=== PATIENT | female | born 2000 | race American Indian/Alaskan Native ===

== ENCOUNTER 2021-04-22 21:11 | Inpatient (IN) | payer MEDICAID ==
[2021-04-22] MEDS ORDERED: LACTATED RINGERS 500 ML IV ONE (22:21)
--- NOTE | 2021-04-23 02:01 | Ultrasound Report ---
US OB limited INDICATION / CLINICAL INFORMATION: FHR. COMPARISON: None available. FINDINGS: Single intrauterine is noted in cephalic presentation. No cardiac activity was detect ed. There is a grade 1 posterior/fundal placenta which appears heterogeneous. IMPRESSION: 1. Intrauterine , no cardiac activity was detected. 2. Grade 1 posterior/fundal placenta appears diffusely abnormal/heterogeneous. I cannot exclude abrup tion. Signer Name: Ashkan Navarrete MD Signed: 04/23/2021 1:57 AM Workstation Name: [id number]
[2021-04-23] MEDS ORDERED: CARBOPROST TROMETHAMINE 250 MCG/1 ML INJ IM PRN (02:30)
[2021-04-23] MEDS ORDERED: MINERAL OIL 30 ML ORAL LIQD PO PRN (02:30)
[2021-04-23] MEDS ORDERED: LIDOCAINE (2%) 20 MG/1 ML VIAL 20 ML MDV INFILTRATI ONE (02:30)
[2021-04-23] MEDS ORDERED: METHYLERGONOVINE MALEATE 0.2 MG/ML VIAL IM PRN (02:30)
[2021-04-23] MEDS ORDERED: OXYTOCIN 10 UNIT/1 ML INJ IM PRN (02:30)
[2021-04-23] MEDS ORDERED: fentaNYL 100 MCG/2 ML INJ IV PRN (02:30)
[2021-04-23] MEDS ORDERED: NalbUPHINE 10 MG/1 ML INJ IV PRN (02:30)
[2021-04-23] MEDS ORDERED: LOPERAMIDE 2 MG CAP PO PRN (02:30)
[2021-04-23] MEDS ORDERED: miSOPROStol 200 MCG TAB PR PRN (02:30)
[2021-04-23] MEDS ORDERED: ePHEDrine SULFATE 50 MG/1 ML INJ IV PRN ×2 (02:30→20:01)
[2021-04-23] MEDS ORDERED: ACETAMINOPHEN 325 MG TAB PO PRN (02:30)
--- NOTE | 2021-04-23 02:42 | History and Physical Report ---
History of Present Illness Date of examination: 04/23/21 Date of admission: 04/23/2021 Chief complaint: No movement History of present illness: Was notified at 02:07 by nurse of no cardiac activity on ultrasound. Came to patient's room to see and evaluate patient. Discussed ultrasound report with patient. 20 year old presents to L&D with complaint of no movement; states last movement was possibly at 3:00 PM. Patient reports she felt co ntractions and abdominal pain at 3:00 PM today. Patient states abdominal pain is much better. Patient denies vaginal bleeding or leaking of fluid. Patient reports episode of blurred vision at 3:00 PM but no further visual disturbance and no swelling, headaches, or dizziness. Patient states she has made 2 visits to [facility] but no records are available. records have been requested. Patient reports that her due date is 06/23/21. labs ordered upon admission; preeclamptic labs and UDS ordered. Past History Past Medical History: no pertinent history Past Surgical History: no surgical history PAIN MEDICINE PHYSICIAN History: denies: chlamydia, gonorrhea, hepatitis B, hepatitis C, herpes, HIV, syphilis, trichomonas Family/Genetic History: diabetes Social history: lives with family, full code. denies: smoking, alcohol abuse, prescription drug abuse, IV drug use - Obstetrical History Expected Date of Delivery: 06/23/21 Actual Gestation: 31 Week(s) 2 Day(s) : 1 Para: 0 Hx # Term Pregnancies: 0 Number of Pregnancies: 0 Spontaneous Abortions: 0 Induced : 0 Number of Living Children: 0 Medications and Allergies Allergies Allergy/AdvReac Type Severity Reaction Status Date / Time No Known Allergies Allergy Verified 04/22/21 22:23 Active Meds: Active Medications Acetaminophen (Acetaminophen 325 Mg Tab) 650 mg PO Q4H PRN PRN Reason: Pain, Mild (1-3) Carboprost Tromethamine (Carboprost Tromethamine 250 Mcg/1 Ml Inj) 250 mcg IM ONCE PRN PRN Reason: Uterine Bleeding Ephedrine Sulfate (Ephedrine Sulfate 50 Mg/1 Ml Inj) 10 mg IV Q2M PRN PRN Reason: Hypotension Fentanyl (Fentanyl 100 Mcg/2 Ml Inj) 100 mcg IV Q2H PRN PRN Reason: Pain,Severe (7-10) LABOR PAIN Lactated Ringer's (Lactated Ringers) 1,000 mls @ 125 mls/hr IV DIRECT KATELYN Oxytocin/Sodium Chloride (Pitocin/Ns 30 Unit/500ml) 30 units in 500 mls @ 40 mls/hr IV TITR KATELYN; Protocol Labetalol HCl (Labetalol 20 Mg/4 Ml Inj) 10 mg IV ONCE ONE Stop: 04/23/21 02:38 Lidocaine (Lidocaine (2%) 20 Mg/1 Ml Vial 20 Ml Mdv) 20 ml INFILTRATI ONCE ONE Stop: 04/23/21 02:31 Loperamide HCl (Loperamide 2 Mg Cap) 2 mg PO ONCE PRN PRN Reason: give with Hemabate Methylergonovine Maleate (Methylergonovine Maleate 0.2 Mg/Ml Vial) 0.2 mg IM ONCE PRN PRN Reason: Uterine Bleeding Mineral Oil (Mineral Oil 30 Ml Oral Liqd) 30 ml PO QHS PRN PRN Reason: Constipation Misoprostol (Misoprostol 200 Mcg Tab) 800 mcg UT ONCE PRN PRN Reason: Uterine Bleeding Nalbuphine HCl (Nalbuphine 10 Mg/1 Ml Inj) 10 mg IV Q2H PRN PRN Reason: Pain, Moderate (4-6) Oxytocin (Oxytocin 10 Unit/1 Ml Inj) 10 unit IM ONCE PRN PRN Reason: Uterine Bleeding Review of Systems All systems: negative (no movement since 3:00 PM, contractions and abdominal pain since 3:00 PM) - Vital Signs Vital signs: Vital Signs Pulse BP 76 144/88 04/23/21 00:36 04/23/21 00:36 Temp Pulse Resp BP Pulse Ox 78 160/102 69 L 04/23/21 02:22 04/23/21 02:22 04/23/21 02:11 - Physical Exam Abdomen: Positive: other (firm, nontender) Genitourinary (Female): Positive: normal external genitalia, normal perenium Vagina: Positive: normal moisture, other (no bleeding or leaking of fluid seen) Uterus: Positive: enlarged, other (firm to palpation). Negative: tender Anus/Rectum: Positive: normal perianal skin Extremities: Negative: tenderness - Obstetrical FHR: other (unable to obtain heart tones; ultrasound shows no cardiac activity) Cervical Dilatation: 0 Cervical Effacement Percentage: 30 station: -3 Uterine Contraction Pattern: Irregular Uterine Contraction Intensity: Strong/Firm Results All other labs normal. Assessment and Plan A: at 31 weeks, 2 days gestation. No cardiac activity. Possible placental abruption. No records available. P: Consulted with Dr. Blake as soon as aware of patient's presence and no cardiac activity and possible placental abruption. Dr. Blake states she is on her way in to see patient. Discussed with patient ultrasound report and no cardiac activity. Management/POC to be determined by Dr. Blake.
[2021-04-23 02:52] LABS: Amphetamine Screen,Urine PRESUMPTIVE NEGATIVE; Benzodiazepines Screen,Urine PRESUMPTIVE NEGATIVE; Cannabinoid Screen,Urine PRESUMPTIVE NEGATIVE; Cocaine Screen,Urine PRESUMPTIVE NEGATIVE; Methadone Screen,Urine PRESUMPTIVE NEGATIVE; Opiate Screen,Urine PRESUMPTIVE NEGATIVE
[2021-04-23] MEDS ORDERED: DINOPROSTONE 10 MG VAG SUPP VG ONE (02:52)
--- NOTE | 2021-04-23 02:58 | Progress Note ---
Assessment and Plan - Patient Problems (1) demise Current Visit: Yes Status: Acute Plan to address problem: the patient is currently clinically and hemodynamically stable patient's cervical exam is currently closed will initiate cervidil for ripening recommend expediting amniotomy once dilation occurs patient currently comfortable and able to answer questions current prognosis discussed with patient to include the possibility of requiring a delivery if she becomes unstable and possible hysterectomy if hemorrhage ensues vaginal delivery would be the preferred route of delivery in lieu of placental abruption (2) Placental abruption Current Visit: Yes Status: Acute Plan to address problem: will obtain additional blood pressures suspect that patient is preeclamptic initiate magnesium sulfate therapy Subjective - Subjective Date of service: 04/23/21 Principal diagnosis: demise Interval history: 20y/o @ 31+2 weeks presents to triage with the complaint of abdominal pain and no movement since 6pm. Ultrasound was performed that confirmed an intrauterine demise in vertex presentation. The photovoltaic installation technician noted that the placenta appeared enlarged but could not definitively detect a retroplacental hematoma. On presentation the patient's abdomen was firm. She denies any vaginal bleeding or LOF. She denies any recent trauma or drug use. The patient's blood pressure was noted to be elevated. Her care is limited. Patient reports: no loss of fluid, no vaginal bleeding, no movement normal Objective - Vital Signs Vital Signs: Vital Signs - 12hr 04/23/21 04/23/21 04/23/21 00:36 00:38 00:43 Pulse Rate 76 71 86 Blood Pressure 144/88 O2 Sat by Pulse 99 100 Oximetry 04/23/21 04/23/21 04/23/21 00:48 00:53 00:58 Pulse Rate 77 75 78 Blood Pressure O2 Sat by Pulse 99 100 100 Oximetry 04/23/21 04/23/21 04/23/21 01:03 01:04 01:08 Pulse Rate 76 73 87 Blood Pressure O2 Sat by Pulse 100 87 100 Oximetry 04/23/21 04/23/21 04/23/21 01:13 01:18 01:23 Pulse Rate 81 100 H 84 Blood Pressure O2 Sat by Pulse 99 100 100 Oximetry 04/23/21 04/23/21 04/23/21 01:28 01:33 01:38 Pulse Rate 85 85 80 Blood Pressure O2 Sat by Pulse 100 100 100 Oximetry 04/23/21 04/23/21 04/23/21 01:43 01:48 01:53 Pulse Rate 83 83 82 Blood Pressure O2 Sat by Pulse 100 100 100 Oximetry 04/23/21 04/23/21 04/23/21 01:58 02:03 02:10 Pulse Rate 85 102 H 48 L Blood Pressure O2 Sat by Pulse 100 100 80 L Oximetry 04/23/21 04/23/21 02:11 02:22 Pulse Rate 47 L 78 Blood Pressure 160/102 O2 Sat by Pulse 69 L Oximetry
[2021-04-23] MEDS ORDERED: MAGNESIUM SULFATE 4 GM/100 ML BAG IV ONE (03:00)
[2021-04-23] MEDS ORDERED: OXYTOCIN DRIP 30 UNITS/500 ML BAG IV SCH ×2 (03:00→20:00)
--- NOTE | 2021-04-23 03:06 | Event Note ---
Date: 04/23/21 Dr. Blake states she saw patient and spoke with patient re: plan of care. Dr. Blake states she ordered Cervidil for patient.
[2021-04-23 03:16] LABS: Bacteria,Urine 3+ /HPF (Negative); Bilirubin,Urine NEG (Negative); Blood,Urine NEG (Negative); Color,Urine Yellow (Yellow); Hyaline Casts,Urine 9 /LPF; Mucus,Urine 1+ /HPF; Urobilinogen,Urine < 2.0 mg/dL (<2.0)
[2021-04-23 04:26] LABS: Hematocrit 28.6 % (30.3-42.9); Hemoglobin 10.1 gm/dl (10.1-14.3); Mean Corpuscular HGB Conc 35 % (30-34); Mean Corpuscular Volume 87 fl (79-97); Platelet Count 130 K/mm3 (140-440); Red Blood Count 3.29 M/mm3 (3.65-5.03); Red Cell Distribution Width 14.8 % (13.2-15.2)
[2021-04-23 04:39] LABS: INR 0.87 (0.87-1.13)
[2021-04-23 04:40] LABS: Fibrinogen 270 mg/dl (211-480)
[2021-04-23 04:44] LABS: Alanine Aminotransferase 11 units/L (7-56); Albumin 3.7 g/dL (3.9-5); BUN/Creatinine Ratio 12; Blood Urea Nitrogen 11 mg/dL (7-17); Calcium 9.2 mg/dL (8.4-10.2); Hemolysis Index 9; Uric Acid 4.8 mg/dL (3.5-7.6)
[2021-04-23 04:51] LABS: Hepatitis C Virus Antibody Non-Reactive (NonReactive)
[2021-04-23] MEDS: MAGNESIUM SULFATE 40GM/1000ML 40 GM/1,000 ML BAG IV SCH (05:00)
--- NOTE | 2021-04-23 07:41 | Progress Note ---
Subjective - Subjective Date of service: 04/23/21 Principal diagnosis: demise Interval history: IUFD WILL pull cervidil and start cytotec 50mcg Q4 x 6 doses Continue Magnesium Sulfate: BP's stable 2 units PRBC on hold: fibrinogen, coags and repeat cbc ordered Monitor closely for DIC Toney Simpson MD Patient reports: no loss of fluid, no vaginal bleeding, no movement normal Objective - Vital Signs Vital Signs: Vital Signs - 12hr 04/23/21 04/23/21 04/23/21 00:36 00:38 00:43 Pulse Rate 76 71 86 Blood Pressure 144/88 O2 Sat by Pulse 99 100 Oximetry O2 Sat by Pulse Oximetry [ Throughout] 04/23/21 04/23/21 04/23/21 00:48 00:53 00:58 Pulse Rate 77 75 78 Blood Pressure O2 Sat by Pulse 99 100 100 Oximetry O2 Sat by Pulse Oximetry [ Throughout] 04/23/21 04/23/21 04/23/21 01:03 01:04 01:08 Pulse Rate 76 73 87 Blood Pressure O2 Sat by Pulse 100 87 100 Oximetry O2 Sat by Pulse Oximetry [ Throughout] 04/23/21 04/23/21 04/23/21 01:13 01:18 01:23 Pulse Rate 81 100 H 84 Blood Pressure O2 Sat by Pulse 99 100 100 Oximetry O2 Sat by Pulse Oximetry [ Throughout] 04/23/21 04/23/21 04/23/21 01:28 01:33 01:38 Pulse Rate 85 85 80 Blood Pressure O2 Sat by Pulse 100 100 100 Oximetry O2 Sat by Pulse Oximetry [ Throughout] 04/23/21 04/23/21 04/23/21 01:43 01:48 01:53 Pulse Rate 83 83 82 Blood Pressure O2 Sat by Pulse 100 100 100 Oximetry O2 Sat by Pulse Oximetry [ Throughout] 04/23/21 04/23/21 04/23/21 01:58 02:03 02:10 Pulse Rate 85 102 H 48 L Blood Pressure O2 Sat by Pulse 100 100 80 L Oximetry O2 Sat by Pulse Oximetry [ Throughout] 04/23/21 04/23/21 04/23/21 02:11 02:22 02:35 Pulse Rate 47 L 78 Blood Pressure 160/102 O2 Sat by Pulse 69 L 85 Oximetry O2 Sat by Pulse Oximetry [ Throughout] 04/23/21 04/23/21 04/23/21 02:52 02:59 03:18 Pulse Rate 33 L Blood Pressure O2 Sat by Pulse 80 L 81 L 0 L Oximetry O2 Sat by Pulse Oximetry [ Throughout] 04/23/21 04/23/21 04/23/21 03:28 03:55 04:05 Pulse Rate 93 H 93 H Blood Pressure 144/101 137/90 O2 Sat by Pulse Oximetry O2 Sat by Pulse 97 Oximetry [ Throughout] 04/23/21 04/23/21 04/23/21 04:33 04:48 05:05 Pulse Rate 87 90 85 Blood Pressure 149/97 137/81 138/93 O2 Sat by Pulse Oximetry O2 Sat by Pulse Oximetry [ Throughout] 04/23/21 04/23/21 04/23/21 05:06 05:36 06:07 Pulse Rate 80 74 83 Blood Pressure 141/93 136/86 157/89 O2 Sat by Pulse Oximetry O2 Sat by Pulse Oximetry [ Throughout] 04/23/21 04/23/21 04/23/21 06:21 06:37 06:45 Pulse Rate 100 H 98 H 84 Blood Pressure 139/80 164/89 146/94 O2 Sat by Pulse Oximetry O2 Sat by Pulse Oximetry [ Throughout] 04/23/21 04/23/21 04/23/21 06:53 07:06 07:36 Pulse Rate 89 103 H 93 H Blood Pressure 144/86 148/93 118/68 O2 Sat by Pulse Oximetry O2 Sat by Pulse Oximetry [ Throughout] - Labs Labs: Abnormal Labs 04/22/21 04/23/21 04/23/21 22:50 03:40 03:40 WBC 14.7 H RBC 3.29 L Hct 28.6 L MCHC 35 H Plt Count 130 L D-Dimer Carbon Dioxide 20 L Alkaline Phosphatase 156 H Lactate Dehydrogenase 270 H Albumin 3.7 L Urine WBC (Auto) 8.0 H U Epithel Cells (Auto) 39.0 H 04/23/21 03:40 WBC RBC Hct MCHC Plt Count D-Dimer > 49508 H Carbon Dioxide Alkaline Phosphatase Lactate Dehydrogenase Albumin Urine WBC (Auto) U Epithel Cells (Auto) Laboratory Results - last 24 hr 04/22/21 04/22/21 04/23/21 22:50 22:50 03:40 WBC 14.7 H RBC 3.29 L Hgb 10.1 Hct 28.6 L MCV 87 MCH 31 MCHC 35 H RDW 14.8 Plt Count 130 L PT INR APTT Fibrinogen D-Dimer Sodium Potassium Chloride Carbon Dioxide Anion Gap BUN Creatinine Estimated GFR BUN/Creatinine Ratio Glucose Uric Acid Calcium Magnesium Total Bilirubin AST ALT Alkaline Phosphatase Lactate Dehydrogenase Total Protein Albumin Albumin/Globulin Ratio Urine Color Yellow Urine Turbidity Cloudy Urine pH 6.0 Ur Specific Avis 1.015 Urine Protein 30 mg/dl Urine Glucose (UA) Neg Urine Ketones Neg Urine Blood Neg Urine Nitrite Neg Urine Bilirubin Neg Urine Urobilinogen < 2.0 Ur Leukocyte Esterase Tr Urine WBC (Auto) 8.0 H Urine RBC (Auto) 2.0 U Epithel Cells (Auto) 39.0 H Urine Bacteria (Auto) 3+ Ur Transition Epith Cell 1 Hyaline Casts 9 Urine Mucus 1+ Urine Opiates Screen Presumptive negative Urine Methadone Screen Presumptive negative Ur Barbiturates Screen Presumptive negative Ur Phencyclidine Scrn Presumptive negative Ur Amphetamines Screen Presumptive negative U Benzodiazepines Scrn Presumptive negative Urine Cocaine Screen Presumptive negative U Marijuana (THC) Screen Presumptive negative Drugs of Abuse Note Disclamer Syphilis IgG/IgM Ab Hep Bs Antigen Hepatitis C Antibody HIV 1&2 Antibody Rapid HIV P24 Antigen Blood Type Antibody Screen 04/23/21 04/23/21 04/23/21 03:40 03:40 03:40 WBC RBC Hgb Hct MCV MCH MCHC RDW Plt Count PT INR APTT Fibrinogen D-Dimer Sodium 139 Potassium 4.1 Chloride 104.7 Carbon Dioxide 20 L Anion Gap 18 BUN 11 Creatinine 0.9 Estimated GFR > 60 BUN/Creatinine Ratio 12 Glucose 95 Uric Acid 4.8 Calcium 9.2 Magnesium Total Bilirubin 0.20 AST 20 ALT 11 Alkaline Phosphatase 156 H Lactate Dehydrogenase 270 H Total Protein 6.3 Albumin 3.7 L Albumin/Globulin Ratio 1.4 Urine Color Urine Turbidity Urine pH Ur Specific Avis Urine Protein Urine Glucose (UA) Urine Ketones Urine Blood Urine Nitrite Urine Bilirubin Urine Urobilinogen Ur Leukocyte Esterase Urine WBC (Auto) Urine RBC (Auto) U Epithel Cells (Auto) Urine Bacteria (Auto) Ur Transition Epith Cell Hyaline Casts Urine Mucus Urine Opiates Screen Urine Methadone Screen Ur Barbiturates Screen Ur Phencyclidine Scrn Ur Amphetamines Screen U Benzodiazepines Scrn Urine Cocaine Screen U Marijuana (THC) Screen Drugs of Abuse Note Syphilis IgG/IgM Ab Nonreactive Hep Bs Antigen Hepatitis C Antibody Non-reactive HIV 1&2 Antibody Rapid HIV P24 Antigen Blood Type O POSITIVE Antibody Screen Negative 04/23/21 04/23/21 04/23/21 03:40 03:40 03:40 WBC RBC Hgb Hct MCV MCH MCHC RDW Plt Count PT 12.8 INR 0.87 APTT 26.0 Fibrinogen 270 D-Dimer > 88968 H Sodium Potassium Chloride Carbon Dioxide Anion Gap BUN Creatinine Estimated GFR BUN/Creatinine Ratio Glucose Uric Acid Calcium Magnesium Total Bilirubin AST ALT Alkaline Phosphatase Lactate Dehydrogenase Total Protein Albumin Albumin/Globulin Ratio Urine Color Urine Turbidity Urine pH Ur Specific Avis Urine Protein Urine Glucose (UA) Urine Ketones Urine Blood Urine Nitrite Urine Bilirubin Urine Urobilinogen Ur Leukocyte Esterase Urine WBC (Auto) Urine RBC (Auto) U Epithel Cells (Auto) Urine Bacteria (Auto) Ur Transition Epith Cell Hyaline Casts Urine Mucus Urine Opiates Screen Urine Methadone Screen Ur Barbiturates Screen Ur Phencyclidine Scrn Ur Amphetamines Screen U Benzodiazepines Scrn Urine Cocaine Screen U Marijuana (THC) Screen Drugs of Abuse Note Syphilis IgG/IgM Ab Hep Bs Antigen Non-reactive Hepatitis C Antibody HIV 1&2 Antibody Rapid Non react HIV P24 Antigen Non react Blood Type Antibody Screen 04/23/21 03:40 WBC RBC Hgb Hct MCV MCH MCHC RDW Plt Count PT INR APTT Fibrinogen D-Dimer Sodium Potassium Chloride Carbon Dioxide Anion Gap BUN Creatinine Estimated GFR BUN/Creatinine Ratio Glucose Uric Acid Calcium Magnesium 1.80 Total Bilirubin AST ALT Alkaline Phosphatase Lactate Dehydrogenase Total Protein Albumin Albumin/Globulin Ratio Urine Color Urine Turbidity Urine pH Ur Specific Avis Urine Protein Urine Glucose (UA) Urine Ketones Urine Blood Urine Nitrite Urine Bilirubin Urine Urobilinogen Ur Leukocyte Esterase Urine WBC (Auto) Urine RBC (Auto) U Epithel Cells (Auto) Urine Bacteria (Auto) Ur Transition Epith Cell Hyaline Casts Urine Mucus Urine Opiates Screen Urine Methadone Screen Ur Barbiturates Screen Ur Phencyclidine Scrn Ur Amphetamines Screen U Benzodiazepines Scrn Urine Cocaine Screen U Marijuana (THC) Screen Drugs of Abuse Note Syphilis IgG/IgM Ab Hep Bs Antigen Hepatitis C Antibody HIV 1&2 Antibody Rapid HIV P24 Antigen Blood Type Antibody Screen
[2021-04-23] MEDS ORDERED: SODIUM CHLORIDE 0.9% 500 ML 500 ML IV SCH (08:00)
[2021-04-23] MEDS ORDERED: miSOPROStol 200 MCG TAB PO SCH (08:00)
[2021-04-23] MEDS: miSOPROStol 25 MCG TAB PO SCH ×4 (08:08→20:42)
[2021-04-23] MEDS ORDERED: TRANEXAMIC ACID 1,000 MG in SODIUM CHLORIDE 0.9% 100 ML IV PRN (09:00)
--- NOTE | 2021-04-23 10:14 | Progress Note ---
Assessment and Plan A: IUFD a 31 2/7 Weeks Preeclampsia P: Continue Magnesium Sulfate 2G/hourly Continue Standard Magnesium Precautions Cytotec 50mcg placed vaginally Subjective - Subjective Date of service: 04/23/21 Principal diagnosis: demise Patient reports: other (Denies HAs, dizziness, N&V, and epigastic pain. States she feels okay in coping with IUFD), no loss of fluid, no vaginal bleeding, no movement normal Objective - Vital Signs Vital Signs: Vital Signs - 12hr 04/23/21 04/23/21 04/23/21 00:36 00:38 00:43 Pulse Rate 76 71 86 Blood Pressure 144/88 O2 Sat by Pulse 99 100 Oximetry O2 Sat by Pulse Oximetry [ Throughout] 04/23/21 04/23/21 04/23/21 00:48 00:53 00:58 Pulse Rate 77 75 78 Blood Pressure O2 Sat by Pulse 99 100 100 Oximetry O2 Sat by Pulse Oximetry [ Throughout] 04/23/21 04/23/21 04/23/21 01:03 01:04 01:08 Pulse Rate 76 73 87 Blood Pressure O2 Sat by Pulse 100 87 100 Oximetry O2 Sat by Pulse Oximetry [ Throughout] 04/23/21 04/23/21 04/23/21 01:13 01:18 01:23 Pulse Rate 81 100 H 84 Blood Pressure O2 Sat by Pulse 99 100 100 Oximetry O2 Sat by Pulse Oximetry [ Throughout] 04/23/21 04/23/21 04/23/21 01:28 01:33 01:38 Pulse Rate 85 85 80 Blood Pressure O2 Sat by Pulse 100 100 100 Oximetry O2 Sat by Pulse Oximetry [ Throughout] 04/23/21 04/23/21 04/23/21 01:43 01:48 01:53 Pulse Rate 83 83 82 Blood Pressure O2 Sat by Pulse 100 100 100 Oximetry O2 Sat by Pulse Oximetry [ Throughout] 04/23/21 04/23/21 04/23/21 01:58 02:03 02:10 Pulse Rate 85 102 H 48 L Blood Pressure O2 Sat by Pulse 100 100 80 L Oximetry O2 Sat by Pulse Oximetry [ Throughout] 04/23/21 04/23/21 04/23/21 02:11 02:22 02:35 Pulse Rate 47 L 78 Blood Pressure 160/102 O2 Sat by Pulse 69 L 85 Oximetry O2 Sat by Pulse Oximetry [ Throughout] 04/23/21 04/23/21 04/23/21 02:52 02:59 03:18 Pulse Rate 33 L Blood Pressure O2 Sat by Pulse 80 L 81 L 0 L Oximetry O2 Sat by Pulse Oximetry [ Throughout] 04/23/21 04/23/21 04/23/21 03:28 03:55 04:05 Pulse Rate 93 H 93 H Blood Pressure 144/101 137/90 O2 Sat by Pulse Oximetry O2 Sat by Pulse 97 Oximetry [ Throughout] 04/23/21 04/23/21 04/23/21 04:33 04:48 05:05 Pulse Rate 87 90 85 Blood Pressure 149/97 137/81 138/93 O2 Sat by Pulse Oximetry O2 Sat by Pulse Oximetry [ Throughout] 04/23/21 04/23/21 04/23/21 05:06 05:36 06:07 Pulse Rate 80 74 83 Blood Pressure 141/93 136/86 157/89 O2 Sat by Pulse Oximetry O2 Sat by Pulse Oximetry [ Throughout] 04/23/21 04/23/21 04/23/21 06:21 06:37 06:45 Pulse Rate 100 H 98 H 84 Blood Pressure 139/80 164/89 146/94 O2 Sat by Pulse Oximetry O2 Sat by Pulse Oximetry [ Throughout] 04/23/21 04/23/21 04/23/21 06:53 07:06 07:36 Pulse Rate 89 103 H 93 H Blood Pressure 144/86 148/93 118/68 O2 Sat by Pulse Oximetry O2 Sat by Pulse Oximetry [ Throughout] 04/23/21 04/23/21 04/23/21 08:06 08:36 09:06 Pulse Rate 96 H 106 H 100 H Blood Pressure 113/69 143/76 120/71 O2 Sat by Pulse Oximetry O2 Sat by Pulse Oximetry [ Throughout] 04/23/21 04/23/21 09:36 10:06 Pulse Rate 88 88 Blood Pressure 129/84 129/81 O2 Sat by Pulse Oximetry O2 Sat by Pulse Oximetry [ Throughout] - Exam Breasts: normal Cardiovascular: Regular rate Lungs: Normal air movement Abdomen: Present: normal appearance, soft Uterus: Present: normal, firm, fundal height above umbilicus FHR: other (none) Uterine Contraction Monitor Mode: External Cervical Dilatation: 0 Cervical Effacement Percentage: 0 station: -3 Uterine Contraction Pattern: Absent Uterine Tone Measurement Phase: Resting - Labs Labs: Abnormal Labs 04/22/21 04/23/21 04/23/21 22:50 03:40 03:40 WBC 14.7 H RBC 3.29 L Hct 28.6 L MCHC 35 H Plt Count 130 L D-Dimer Carbon Dioxide Alkaline Phosphatase Lactate Dehydrogenase Albumin Urine WBC (Auto) 8.0 H U Epithel Cells (Auto) 39.0 H Crossmatch See Detail 04/23/21 04/23/21 03:40 03:40 WBC RBC Hct MCHC Plt Count D-Dimer > 74044 H Carbon Dioxide 20 L Alkaline Phosphatase 156 H Lactate Dehydrogenase 270 H Albumin 3.7 L Urine WBC (Auto) U Epithel Cells (Auto) Crossmatch Laboratory Results - last 24 hr 04/22/21 04/22/21 04/23/21 22:50 22:50 03:40 WBC 14.7 H RBC 3.29 L Hgb 10.1 Hct 28.6 L MCV 87 MCH 31 MCHC 35 H RDW 14.8 Plt Count 130 L PT INR APTT Fibrinogen D-Dimer Sodium Potassium Chloride Carbon Dioxide Anion Gap BUN Creatinine Estimated GFR BUN/Creatinine Ratio Glucose Uric Acid Calcium Magnesium Total Bilirubin AST ALT Alkaline Phosphatase Lactate Dehydrogenase Total Protein Albumin Albumin/Globulin Ratio Urine Color Yellow Urine Turbidity Cloudy Urine pH 6.0 Ur Specific [place] 1.015 Urine Protein 30 mg/dl Urine Glucose (UA) Neg Urine Ketones Neg Urine Blood Neg Urine Nitrite Neg Urine Bilirubin Neg Urine Urobilinogen < 2.0 Ur Leukocyte Esterase Tr Urine WBC (Auto) 8.0 H Urine RBC (Auto) 2.0 U Epithel Cells (Auto) 39.0 H Urine Bacteria (Auto) 3+ Ur Transition Epith Cell 1 Hyaline Casts 9 Urine Mucus 1+ Urine Opiates Screen Presumptive negative Urine Methadone Screen Presumptive negative Ur Barbiturates Screen Presumptive negative Ur Phencyclidine Scrn Presumptive negative Ur Amphetamines Screen Presumptive negative U Benzodiazepines Scrn Presumptive negative Urine Cocaine Screen Presumptive negative U Marijuana (THC) Screen Presumptive negative Drugs of Abuse Note Disclamer Syphilis IgG/IgM Ab Hep Bs Antigen Hepatitis C Antibody HIV 1&2 Antibody Rapid HIV P24 Antigen Blood Type Antibody Screen Crossmatch 04/23/21 04/23/21 04/23/21 03:40 03:40 03:40 WBC RBC Hgb Hct MCV MCH MCHC RDW Plt Count PT INR APTT Fibrinogen D-Dimer Sodium 139 Potassium 4.1 Chloride 104.7 Carbon Dioxide 20 L Anion Gap 18 BUN 11 Creatinine 0.9 Estimated GFR > 60 BUN/Creatinine Ratio 12 Glucose 95 Uric Acid 4.8 Calcium 9.2 Magnesium Total Bilirubin 0.20 AST 20 ALT 11 Alkaline Phosphatase 156 H Lactate Dehydrogenase 270 H Total Protein 6.3 Albumin 3.7 L Albumin/Globulin Ratio 1.4 Urine Color Urine Turbidity Urine pH Ur Specific [place] Urine Protein Urine Glucose (UA) Urine Ketones Urine Blood Urine Nitrite Urine Bilirubin Urine Urobilinogen Ur Leukocyte Esterase Urine WBC (Auto) Urine RBC (Auto) U Epithel Cells (Auto) Urine Bacteria (Auto) Ur Transition Epith Cell Hyaline Casts Urine Mucus Urine Opiates Screen Urine Methadone Screen Ur Barbiturates Screen Ur Phencyclidine Scrn Ur Amphetamines Screen U Benzodiazepines Scrn Urine Cocaine Screen U Marijuana (THC) Screen Drugs of Abuse Note Syphilis IgG/IgM Ab Nonreactive Hep Bs Antigen Hepatitis C Antibody Non-reactive HIV 1&2 Antibody Rapid HIV P24 Antigen Blood Type O POSITIVE Antibody Screen Negative Crossmatch See Detail 04/23/21 04/23/21 04/23/21 03:40 03:40 03:40 WBC RBC Hgb Hct MCV MCH MCHC RDW Plt Count PT 12.8 INR 0.87 APTT 26.0 Fibrinogen 270 D-Dimer > 21559 H Sodium Potassium Chloride Carbon Dioxide Anion Gap BUN Creatinine Estimated GFR BUN/Creatinine Ratio Glucose Uric Acid Calcium Magnesium Total Bilirubin AST ALT Alkaline Phosphatase Lactate Dehydrogenase Total Protein Albumin Albumin/Globulin Ratio Urine Color Urine Turbidity Urine pH Ur Specific [place] Urine Protein Urine Glucose (UA) Urine Ketones Urine Blood Urine Nitrite Urine Bilirubin Urine Urobilinogen Ur Leukocyte Esterase Urine WBC (Auto) Urine RBC (Auto) U Epithel Cells (Auto) Urine Bacteria (Auto) Ur Transition Epith Cell Hyaline Casts Urine Mucus Urine Opiates Screen Urine Methadone Screen Ur Barbiturates Screen Ur Phencyclidine Scrn Ur Amphetamines Screen U Benzodiazepines Scrn Urine Cocaine Screen U Marijuana (THC) Screen Drugs of Abuse Note Syphilis IgG/IgM Ab Hep Bs Antigen Non-reactive Hepatitis C Antibody HIV 1&2 Antibody Rapid Non react HIV P24 Antigen Non react Blood Type Antibody Screen Crossmatch 04/23/21 03:40 WBC RBC Hgb Hct MCV MCH MCHC RDW Plt Count PT INR APTT Fibrinogen D-Dimer Sodium Potassium Chloride Carbon Dioxide Anion Gap BUN Creatinine Estimated GFR BUN/Creatinine Ratio Glucose Uric Acid Calcium Magnesium 1.80 Total Bilirubin AST ALT Alkaline Phosphatase Lactate Dehydrogenase Total Protein Albumin Albumin/Globulin Ratio Urine Color Urine Turbidity Urine pH Ur Specific [place] Urine Protein Urine Glucose (UA) Urine Ketones Urine Blood Urine Nitrite Urine Bilirubin Urine Urobilinogen Ur Leukocyte Esterase Urine WBC (Auto) Urine RBC (Auto) U Epithel Cells (Auto) Urine Bacteria (Auto) Ur Transition Epith Cell Hyaline Casts Urine Mucus Urine Opiates Screen Urine Methadone Screen Ur Barbiturates Screen Ur Phencyclidine Scrn Ur Amphetamines Screen U Benzodiazepines Scrn Urine Cocaine Screen U Marijuana (THC) Screen Drugs of Abuse Note Syphilis IgG/IgM Ab Hep Bs Antigen Hepatitis C Antibody HIV 1&2 Antibody Rapid HIV P24 Antigen Blood Type Antibody Screen Crossmatch
[2021-04-23] MEDS ORDERED: miSOPROStol 25 MCG TAB VG SCH (11:00)
--- NOTE | 2021-04-23 19:42 | Progress Note ---
Subjective - Subjective Date of service: 04/23/21 Principal diagnosis: demise Interval history: IUFD AROM clear cervix 1cm/long/-4 Anesthesia notified for epidural plan for oxytocin per protocol Toney Simpson MD Patient reports: other (Denies HAs, dizziness, N&V, and epigastic pain. States she feels okay in coping with IUFD), no loss of fluid, no vaginal bleeding, no movement normal Objective - Vital Signs Vital Signs: Vital Signs - 12hr 04/23/21 04/23/21 04/23/21 08:06 08:36 09:06 Temperature Pulse Rate 96 H 106 H 100 H Respiratory Rate Blood Pressure 113/69 143/76 120/71 O2 Sat by Pulse Oximetry [ Throughout] 04/23/21 04/23/21 04/23/21 09:36 10:06 10:36 Temperature Pulse Rate 88 88 92 H Respiratory Rate Blood Pressure 129/84 129/81 130/86 O2 Sat by Pulse Oximetry [ Throughout] 04/23/21 04/23/21 04/23/21 11:06 11:36 12:07 Temperature Pulse Rate 89 80 83 Respiratory Rate Blood Pressure 144/100 140/94 147/94 O2 Sat by Pulse Oximetry [ Throughout] 04/23/21 04/23/21 04/23/21 12:37 13:07 13:36 Temperature Pulse Rate 80 77 76 Respiratory Rate Blood Pressure 165/98 150/97 135/85 O2 Sat by Pulse Oximetry [ Throughout] 04/23/21 04/23/21 04/23/21 14:07 14:37 15:06 Temperature Pulse Rate 81 89 79 Respiratory Rate Blood Pressure 119/79 124/91 133/89 O2 Sat by Pulse Oximetry [ Throughout] 04/23/21 04/23/21 04/23/21 15:36 17:07 17:37 Temperature Pulse Rate 83 90 83 Respiratory Rate Blood Pressure 142/81 149/79 136/82 O2 Sat by Pulse Oximetry [ Throughout] 04/23/21 04/23/21 04/23/21 18:06 18:36 19:06 Temperature Pulse Rate 88 83 81 Respiratory Rate Blood Pressure 137/94 135/85 123/86 O2 Sat by Pulse Oximetry [ Throughout] 04/23/21 04/23/21 19:15 19:37 Temperature 98.6 F Pulse Rate 89 Respiratory 18 Rate Blood Pressure 137/80 O2 Sat by Pulse 97 Oximetry [ Throughout] - Labs Labs: Abnormal Labs 04/22/21 04/23/21 04/23/21 22:50 03:40 03:40 WBC 14.7 H RBC 3.29 L Hct 28.6 L MCHC 35 H Plt Count 130 L D-Dimer Carbon Dioxide Alkaline Phosphatase Lactate Dehydrogenase Albumin Urine WBC (Auto) 8.0 H U Epithel Cells (Auto) 39.0 H Crossmatch See Detail 04/23/21 04/23/21 03:40 03:40 WBC RBC Hct MCHC Plt Count D-Dimer > 04167 H Carbon Dioxide 20 L Alkaline Phosphatase 156 H Lactate Dehydrogenase 270 H Albumin 3.7 L Urine WBC (Auto) U Epithel Cells (Auto) Crossmatch Laboratory Results - last 24 hr 04/22/21 04/22/21 04/23/21 22:50 22:50 03:40 WBC 14.7 H RBC 3.29 L Hgb 10.1 Hct 28.6 L MCV 87 MCH 31 MCHC 35 H RDW 14.8 Plt Count 130 L PT INR APTT Fibrinogen D-Dimer Sodium Potassium Chloride Carbon Dioxide Anion Gap BUN Creatinine Estimated GFR BUN/Creatinine Ratio Glucose Uric Acid Calcium Magnesium Total Bilirubin AST ALT Alkaline Phosphatase Lactate Dehydrogenase Total Protein Albumin Albumin/Globulin Ratio Urine Color Yellow Urine Turbidity Cloudy Urine pH 6.0 Ur Specific [place] 1.015 Urine Protein 30 mg/dl Urine Glucose (UA) Neg Urine Ketones Neg Urine Blood Neg Urine Nitrite Neg Urine Bilirubin Neg Urine Urobilinogen < 2.0 Ur Leukocyte Esterase Tr Urine WBC (Auto) 8.0 H Urine RBC (Auto) 2.0 U Epithel Cells (Auto) 39.0 H Urine Bacteria (Auto) 3+ Ur Transition Epith Cell 1 Hyaline Casts 9 Urine Mucus 1+ Urine Opiates Screen Presumptive negative Urine Methadone Screen Presumptive negative Ur Barbiturates Screen Presumptive negative Ur Phencyclidine Scrn Presumptive negative Ur Amphetamines Screen Presumptive negative U Benzodiazepines Scrn Presumptive negative Urine Cocaine Screen Presumptive negative U Marijuana (THC) Screen Presumptive negative Drugs of Abuse Note Disclamer Syphilis IgG/IgM Ab SARS-CoV-2 (PCR) Hep Bs Antigen Hepatitis C Antibody HIV 1&2 Antibody Rapid HIV P24 Antigen Blood Type Antibody Screen Crossmatch 04/23/21 04/23/21 04/23/21 03:40 03:40 03:40 WBC RBC Hgb Hct MCV MCH MCHC RDW Plt Count PT INR APTT Fibrinogen D-Dimer Sodium 139 Potassium 4.1 Chloride 104.7 Carbon Dioxide 20 L Anion Gap 18 BUN 11 Creatinine 0.9 Estimated GFR > 60 BUN/Creatinine Ratio 12 Glucose 95 Uric Acid 4.8 Calcium 9.2 Magnesium Total Bilirubin 0.20 AST 20 ALT 11 Alkaline Phosphatase 156 H Lactate Dehydrogenase 270 H Total Protein 6.3 Albumin 3.7 L Albumin/Globulin Ratio 1.4 Urine Color Urine Turbidity Urine pH Ur Specific [place] Urine Protein Urine Glucose (UA) Urine Ketones Urine Blood Urine Nitrite Urine Bilirubin Urine Urobilinogen Ur Leukocyte Esterase Urine WBC (Auto) Urine RBC (Auto) U Epithel Cells (Auto) Urine Bacteria (Auto) Ur Transition Epith Cell Hyaline Casts Urine Mucus Urine Opiates Screen Urine Methadone Screen Ur Barbiturates Screen Ur Phencyclidine Scrn Ur Amphetamines Screen U Benzodiazepines Scrn Urine Cocaine Screen U Marijuana (THC) Screen Drugs of Abuse Note Syphilis IgG/IgM Ab Nonreactive SARS-CoV-2 (PCR) Hep Bs Antigen Hepatitis C Antibody Non-reactive HIV 1&2 Antibody Rapid HIV P24 Antigen Blood Type O POSITIVE Antibody Screen Negative Crossmatch See Detail 04/23/21 04/23/21 04/23/21 03:40 03:40 03:40 WBC RBC Hgb Hct MCV MCH MCHC RDW Plt Count PT 12.8 INR 0.87 APTT 26.0 Fibrinogen 270 D-Dimer > 24077 H Sodium Potassium Chloride Carbon Dioxide Anion Gap BUN Creatinine Estimated GFR BUN/Creatinine Ratio Glucose Uric Acid Calcium Magnesium Total Bilirubin AST ALT Alkaline Phosphatase Lactate Dehydrogenase Total Protein Albumin Albumin/Globulin Ratio Urine Color Urine Turbidity Urine pH Ur Specific [place] Urine Protein Urine Glucose (UA) Urine Ketones Urine Blood Urine Nitrite Urine Bilirubin Urine Urobilinogen Ur Leukocyte Esterase Urine WBC (Auto) Urine RBC (Auto) U Epithel Cells (Auto) Urine Bacteria (Auto) Ur Transition Epith Cell Hyaline Casts Urine Mucus Urine Opiates Screen Urine Methadone Screen Ur Barbiturates Screen Ur Phencyclidine Scrn Ur Amphetamines Screen U Benzodiazepines Scrn Urine Cocaine Screen U Marijuana (THC) Screen Drugs of Abuse Note Syphilis IgG/IgM Ab SARS-CoV-2 (PCR) Hep Bs Antigen Non-reactive Hepatitis C Antibody HIV 1&2 Antibody Rapid Non react HIV P24 Antigen Non react Blood Type Antibody Screen Crossmatch 04/23/21 04/23/21 04/23/21 03:40 09:24 11:07 WBC RBC Hgb Hct MCV MCH MCHC RDW Plt Count PT INR APTT Fibrinogen 302 D-Dimer Sodium Potassium Chloride Carbon Dioxide Anion Gap BUN Creatinine Estimated GFR BUN/Creatinine Ratio Glucose Uric Acid Calcium Magnesium 1.80 Total Bilirubin AST ALT Alkaline Phosphatase Lactate Dehydrogenase Total Protein Albumin Albumin/Globulin Ratio Urine Color Urine Turbidity Urine pH Ur Specific [place] Urine Protein Urine Glucose (UA) Urine Ketones Urine Blood Urine Nitrite Urine Bilirubin Urine Urobilinogen Ur Leukocyte Esterase Urine WBC (Auto) Urine RBC (Auto) U Epithel Cells (Auto) Urine Bacteria (Auto) Ur Transition Epith Cell Hyaline Casts Urine Mucus Urine Opiates Screen Urine Methadone Screen Ur Barbiturates Screen Ur Phencyclidine Scrn Ur Amphetamines Screen U Benzodiazepines Scrn Urine Cocaine Screen U Marijuana (THC) Screen Drugs of Abuse Note Syphilis IgG/IgM Ab SARS-CoV-2 (PCR) Negative Hep Bs Antigen Hepatitis C Antibody HIV 1&2 Antibody Rapid HIV P24 Antigen Blood Type Antibody Screen Crossmatch
[2021-04-23] MEDS ORDERED: NALOXONE 2 MG/2 ML INJ IV PRN (20:01)
--- NOTE | 2021-04-23 20:01 | Anesthesia Consultation ---
Anesthesia Consult and Med Hx Date of service: 04/23/21 - Airway Anesthetic Teeth Evaluation: Poor ROM Head & Neck: Adequate Mental/Hyoid Distance: Adequate Mallampati Class: Class II Intubation Access Assessment: Probably Good - Pulmonary Exam CTA: Yes - Cardiac Exam Cardiac Exam: RRR - Pre-Operative Health Status ASA Pre-Surgery Classification: ASA3 Proposed Anesthetic Plan: Epidural - Pulmonary Hx Smoking: No Hx Asthma: Yes Hx Respiratory Symptoms: No SOB: No - Cardiovascular System Hx Hypertension: Yes (on Mg gtt) - Central Nervous System Hx Seizures: No Hx Psychiatric Problems: No - Endocrine Hx Renal Disease: No Hx Hypothyroidism: No Hx Hyperthyroidism: No - Hematic Hx Anemia: No Hx Sickle Cell Disease: No - Other Systems Hx Alcohol Use: No Hx Substance Use: Yes (stop 31wks ago )
[2021-04-23] MEDS: LACTATED RINGERS 1,000 ML IV SCH (21:40)
--- NOTE | 2021-04-23 22:07 | Progress Note ---
Labor Epidural - Labor Epidural Start Time: 21:45 Stop Time: 21:52 Performed by:: JOHNNY HARRINGTON Procedure: Patient is requesting epidural for labor pain. H&P and labs reviewed. Procedure explained, questions answered, consent obtained. Patient placed in sitting position with monitors applied. Timeout performed immediately before start of procedure. Prep/drape in usual sterile fashion. Skin localized 3 mL 1% lidocaine at L[3]-L[4] interspace. 17-gauge Touhy epidural needle advanced to VALENTÍN with saline at [5] cm. No blood/CSF noted via epidural needle. Epidural catheter advanced to [10] cm. Negative aspiration for blood and CSF via catheter, negative response to test dose 3 ml 1.5% lidocaine w/ Epi. Sterile dressing applied followed by tape reinforcement. Patient tolerated procedure well. No immediate complications noted.
[2021-04-23] MEDS: fentaNYL-BUPIV 2 MCG/ML-0.125% 200 MCG/100 ML BAG EPIDURAL SCH (22:55)
[2021-04-24 01:08] LABS: Basophils % (Auto) 0.2 % (0.0-1.8); Eosinophils # (Auto) 0.1 K/mm3 (0.0-0.4); Eosinophils % (Auto) 1.2 % (0.0-4.3); Hematocrit 29.7 % (30.3-42.9); Hemoglobin 9.9 gm/dl (10.1-14.3); Lymphocytes # (Auto) 1.5 K/mm3 (1.2-5.4); Lymphocytes % (Auto) 14.8 % (13.4-35.0); Mean Corpuscular HGB Conc 33 % (30-34); Mean Corpuscular Volume 88 fl (79-97); Monocytes # (Auto) 0.7 K/mm3 (0.0-0.8); Monocytes % (Auto) 7.3 % (0.0-7.3); Platelet Count 118 K/mm3 (140-440); Red Blood Count 3.39 M/mm3 (3.65-5.03); Red Cell Distribution Width 15.2 % (13.2-15.2)
[2021-04-24 03:14] LABS: Bilirubin,Urine NEG (Negative); Blood,Urine MOD (Negative); Color,Urine Colorless (Yellow); Protein,Urine <15 mg/dL mg/dL (Negative); Urobilinogen,Urine < 2.0 mg/dL (<2.0)
[2021-04-24] MEDS: MAGNESIUM SULFATE 40GM/1000ML 40 GM/1,000 ML BAG IV SCH (06:23)
[2021-04-24] MEDS: fentaNYL-BUPIV 2 MCG/ML-0.125% 200 MCG/100 ML BAG EPIDURAL SCH (06:26)
[2021-04-24] MEDS ORDERED: AMPICILLIN/NS 2 GM/100 ML 2 GM/100 ML BAG IV ONE (09:47)
--- NOTE | 2021-04-24 10:27 | Procedure Note ---
OB Delivery Note - Delivery Date of Delivery: 04/24/21 Surgeon: RUFINO BARROSO Estimated blood loss: <100cc - Vaginal Delivery presentation: vertex Delivery position: OA Intrapartum events: no care, febrile- temp >100.3, meconium, foul smelling fluid, other(please specify) (IUFD) Delivery induction: misoprostol Delivery augmentation: rupture of membranes, pitocin Delivery monitor: none Route of delivery: Delivery placenta: spontaneous Delivery cord: 2 umbilical vessels, other (Extra placenta lobe) Episiotomy: none Delivery laceration: none Anesthesia: epidural Delivery comments: of a non viable male over an intact perineum. Cord was clamped x 2 and cut. was wrapped in a blanket and given to mom. Unable to obtain cord blood r/t very little output. Spontaneous delivery of an intact placenta; 2 CV with extra placenta lobe was noted. FF@ U2 with fundal massage and IV Pitocin. An exploration of tears revealed none. Mom was left in stable condition with baby and nurse. QBL 50cc. - Infant A at 1 minute: 0 at 5 minutes: 0 Infant Gender: Male (IUFD)
[2021-04-24] MEDS ORDERED: PROMETHAZINE 25 MG TAB PO PRN (11:00)
[2021-04-24] MEDS ORDERED: WITCH HAZEL/ GLYCERIN PAD TP PRN (11:00)
[2021-04-24] MEDS ORDERED: diphenhydrAMINE 25 MG CAP PO PRN (11:00)
[2021-04-24] MEDS ORDERED: MAGNESIUM HYDROXIDE (MOM) ORAL LIQD UDC PO PRN (11:00)
[2021-04-24] MEDS ORDERED: PROMETHAZINE 25 MG RECT SUPP PR PRN (11:00)
[2021-04-24] MEDS ORDERED: LANOLIN/ZINC/DIMETHICONE (LANSINOH) 7 GM TP PRN (11:00)
[2021-04-24] MEDS ORDERED: ONDANSETRON 4 MG/2 ML INJ IV PRN (11:00)
[2021-04-24] MEDS ORDERED: oxyCODONE /ACETAMINOPHEN 5-325MG TAB PO PRN (11:00)
[2021-04-24] MEDS ORDERED: ACETAMINOPHEN 325 MG TAB PO PRN (11:00)
[2021-04-24] MEDS: AMPICILLIN/NS 1 GM/50 ML 1 GM/50 ML BAG IV SCH ×2 (14:10→23:28)
--- NOTE | 2021-04-24 16:03 | Post Anesthesia Evaluation ---
- Post Anesthesia Evaluation Patient Participated: Yes Airway Patent: Yes Stable Respiratory Function: Yes Nausea/Vomiting: No Temp > 96.8F: Yes Pain Manageable: Yes Adequeate Hydration: Yes Anesthesia Complications: No Block Receding Appropriately: Yes Patient on Ventilator: No
[2021-04-24] MEDS: IBUPROFEN 800 MG TAB PO SCH ×2 (20:29→23:08)
[2021-04-24] MEDS: LACTATED RINGERS 1,000 ML IV SCH (23:27)
[2021-04-25 00:37] LABS: Hematocrit 27.7 % (30.3-42.9); Hemoglobin 9.2 gm/dl (10.1-14.3)
[2021-04-25] MEDS: AMPICILLIN/NS 1 GM/50 ML 1 GM/50 ML BAG IV SCH ×4 (04:59→23:31)
[2021-04-25] MEDS: IBUPROFEN 800 MG TAB PO SCH ×4 (05:03→23:26)
--- NOTE | 2021-04-25 08:59 | Progress Note ---
Assessment and Plan A: PP Day #1 Preclampsia s/p Maternal fever Asymptomatic Anemia P: Follow Routine Orders Continue Labetalol as ordered Closely Monitor BPs and Maternal Temp Subjective - Subjective Date of service: 04/25/21 Principal diagnosis: demise Patient reports: appetite normal, voiding normally, pain well controlled, flatus, ambulating normally, other (Denies HAs, Visual changes, N&V, fatigue, lightheadness) [place]: Objective - Vital Signs Latest vital signs: Vital Signs Temp Pulse Resp BP BP Pulse Ox Pulse Ox 04/25/21 08:10 98.5 F 82 20 119/61 98 04/25/21 05:04 98.2 F 86 20 134/65 99 04/25/21 05:03 18 04/25/21 00:17 98.2 F 85 20 120/65 97 04/24/21 23:34 83 110/50 96 04/24/21 23:32 82 110/50 04/24/21 23:08 18 04/24/21 21:29 18 04/24/21 20:29 18 04/24/21 20:21 18 04/24/21 20:15 99 04/24/21 20:02 99.3 F 87 18 121/67 93 04/24/21 19:43 98.7 F 107 H 18 112/67 04/24/21 19:33 91 H 98 04/24/21 19:28 96 H 109/67 100 04/24/21 19:23 93 H 99 04/24/21 19:21 12 04/24/21 19:18 105 H 99 04/24/21 19:13 93 H 102/59 99 04/24/21 19:08 106 H 98 04/24/21 19:04 95 H 107/62 04/24/21 19:02 104 H 99 04/24/21 18:59 104 H 72/44 04/24/21 18:57 103 H 99 04/24/21 18:52 104 H 99 04/24/21 18:47 98 H 98 04/24/21 18:43 96 H 108/55 04/24/21 18:42 99 H 99 04/24/21 18:37 100 H 98 04/24/21 18:33 99.6 F 04/24/21 18:32 98 H 98 04/24/21 18:28 96 H 105/57 04/24/21 18:27 97 H 99 04/24/21 18:22 100 H 97 04/24/21 18:17 109 H 98 04/24/21 18:13 101 H 102/55 04/24/21 18:12 105 H 98 04/24/21 18:07 101 H 98 04/24/21 18:02 106 H 98 04/24/21 18:00 98 04/24/21 17:58 100 H 107/60 04/24/21 17:57 103 H 98 04/24/21 17:52 100 H 98 04/24/21 17:47 100 H 98 04/24/21 17:43 98 H 106/58 04/24/21 17:42 101 H 98 04/24/21 17:37 103 H 99 04/24/21 17:32 104 H 98 04/24/21 17:28 98 H 103/59 04/24/21 17:27 99 H 98 04/24/21 17:22 102 H 98 04/24/21 17:17 103 H 99 04/24/21 17:13 100 H 104/60 04/24/21 17:12 102 H 98 04/24/21 17:07 102 H 98 04/24/21 17:02 105 H 98 04/24/21 17:00 98 04/24/21 16:58 106 H 108/61 04/24/21 16:57 99 H 99 04/24/21 16:52 106 H 99 04/24/21 16:49 98.2 F 04/24/21 16:47 107 H 99 04/24/21 16:43 105 H 106/60 04/24/21 16:42 106 H 99 04/24/21 16:37 99 H 98 04/24/21 16:32 107 H 99 04/24/21 16:28 101 H 92/68 04/24/21 16:27 100 H 99 04/24/21 16:22 104 H 97 04/24/21 16:17 113 H 98 04/24/21 16:13 117 H 91/64 04/24/21 16:12 117 H 98 04/24/21 16:07 108 H 97 04/24/21 16:02 111 H 97 04/24/21 16:00 97 04/24/21 15:58 111 H 110/56 03/01/22 15:57 112 H 97 04/24/21 15:52 110 H 97 04/24/21 15:47 107 H 96 04/24/21 15:43 107 H 114/60 04/24/21 15:42 108 H 96 04/24/21 15:37 107 H 96 04/24/21 15:32 107 H 96 04/24/21 15:28 108 H 112/64 04/24/21 15:27 108 H 96 04/24/21 15:22 115 H 97 04/24/21 15:17 116 H 97 04/24/21 15:16 104 H 94 04/24/21 15:13 112 H 104/57 04/24/21 15:12 111 H 96 04/24/21 15:07 111 H 96 04/24/21 15:02 111 H 96 04/24/21 15:00 96 04/24/21 14:59 115 H 91 04/24/21 14:58 111 H 109/55 04/24/21 14:57 114 H 96 04/24/21 14:52 115 H 96 04/24/21 14:47 112 H 96 04/24/21 14:43 114 H 113/56 04/24/21 14:42 111 H 96 04/24/21 14:37 111 H 96 04/24/21 14:32 112 H 96 04/24/21 14:28 109 H 117/58 04/24/21 14:27 110 H 96 04/24/21 14:22 112 H 97 04/24/21 14:17 111 H 96 04/24/21 14:13 112 H 114/59 04/24/21 14:12 113 H 96 04/24/21 14:07 113 H 97 04/24/21 14:02 115 H 98 04/24/21 14:00 98 04/24/21 13:58 115 H 139/68 04/24/21 13:57 122 H 98 04/24/21 13:52 111 H 98 04/24/21 13:47 104 H 98 04/24/21 13:43 103 H 113/65 04/24/21 13:42 104 H 98 04/24/21 13:37 103 H 98 04/24/21 13:32 106 H 99 03/01/22 13:28 100 H 122/70 03/01/22 13:27 99 H 99 04/24/21 13:22 104 H 98 04/24/21 13:17 100 H 98 04/24/21 13:13 100 H 121/66 04/24/21 13:12 102 H 99 04/24/21 13:07 104 H 98 04/24/21 13:02 101 H 100 04/24/21 13:00 100 04/24/21 12:58 115 H 139/75 04/24/21 12:57 106 H 98 04/24/21 12:52 102 H 99 04/24/21 12:47 103 H 98 04/24/21 12:43 120 H 131/83 04/24/21 12:42 118 H 99 04/24/21 12:37 101 H 99 04/24/21 12:32 100 H 100 04/24/21 12:28 115 H 119/73 04/24/21 12:27 105 H 100 04/24/21 12:22 107 H 99 04/24/21 12:17 107 H 99 04/24/21 12:00 99 04/24/21 11:56 98.9 F 04/24/21 11:00 98 04/24/21 10:02 118 H 98 04/24/21 10:00 98 04/24/21 09:57 112 H 97 04/24/21 09:52 114 H 98 04/24/21 09:47 119 H 97 04/24/21 09:45 101.2 F H 04/24/21 09:43 96 H 122/73 04/24/21 09:42 106 H 98 04/24/21 09:37 103 H 97 04/24/21 09:32 97 H 97 04/24/21 09:29 101 H 129/89 04/24/21 09:27 104 H 97 04/24/21 09:22 102 H 96 04/24/21 09:17 100 H 96 04/24/21 09:13 99 H 125/75 04/24/21 09:12 95 H 98 04/24/21 09:07 99 H 97 04/24/21 09:02 99 H 98 04/24/21 09:00 98 04/24/21 08:58 105 H 124/87 04/24/21 08:57 110 H 100 Intake and Output 04/24/21 04/25/21 04/25/21 22:59 06:59 14:59 Intake Total 50 530 210 Output Total 1250 800 300 Balance -1200 -270 -90 Intake: IV 50 50 AMPICILLIN/NS 1 GM/50 ML 50 1 gm In 50 ml @ 100 mls/ hr IV Q6H KATELYN Rx#: [id number] CLEOCIN 900 MG/50 mL 900 50 mg In 50 ml @ 100 mls/hr IV Q8H KATELYN Rx#:[id number] Oral 480 210 Output: Urine 1250 800 300 Indwelling Catheter 1250 Void 800 300 Other: Total, Intake Amount 480 210 Total, Output Amount 200 300 300 Estimated Blood Loss 50 - Exam Breasts: Present: normal Cardiovascular: Present: Regular rate Lungs: Present: Clear to auscultation, Normal air movement Abdomen: Present: normal appearance, soft, normal bowel sounds Uterus: Present: normal, firm, fundal height below umbilicus Extremities: Present: normal - Labs Labs: Abnormal lab results 04/24/21 04/24/21 04/24/21 Range/Units 09:00 15:55 19:11 Hgb (10.1-14.3) gm/dl Hct (30.3-42.9) % Magnesium 6.00 H 6.20 H 6.20 H (1.7-2.3) mg/dL 04/24/21 Range/Units 23:23 Hgb 9.2 L (10.1-14.3) gm/dl Hct 27.7 L (30.3-42.9) % Magnesium (1.7-2.3) mg/dL
[2021-04-25] MEDS: LACTATED RINGERS 1,000 ML IV SCH (09:08)
[2021-04-25 09:48] LABS: Basophils % (Auto) 0.1 % (0.0-1.8); Eosinophils # (Auto) 0.1 K/mm3 (0.0-0.4); Eosinophils % (Auto) 0.8 % (0.0-4.3); Hematocrit 26.1 % (30.3-42.9); Hemoglobin 8.8 gm/dl (10.1-14.3); Lymphocytes # (Auto) 0.8 K/mm3 (1.2-5.4); Mean Corpuscular HGB Conc 34 % (30-34); Mean Corpuscular Volume 88 fl (79-97); Monocytes # (Auto) 0.8 K/mm3 (0.0-0.8); Monocytes % (Auto) 5.5 % (0.0-7.3); Platelet Count 134 K/mm3 (140-440); Red Blood Count 2.97 M/mm3 (3.65-5.03); Red Cell Distribution Width 15.5 % (13.2-15.2)
[2021-04-25] MEDS: PRENATAL VIT27-FE FUMARATE-FOLIC ACID VIT TAB PO SCH (11:37)
[2021-04-25] MEDS: FERROUS SULFATE 325 MG TAB PO SCH ×2 (15:59→21:50)
[2021-04-25] MEDS: ASCORBIC ACID 500 MG TAB PO SCH ×2 (15:59→21:50)
[2021-04-25 21:10] LABS: Alanine Aminotransferase 17 units/L (7-56); Albumin 3.5 g/dL (3.9-5); BUN/Creatinine Ratio 14; Blood Urea Nitrogen 11 mg/dL (7-17); Calcium 8.6 mg/dL (8.4-10.2); Hemolysis Index 42
[2021-04-26] MEDS: LACTATED RINGERS 1,000 ML IV SCH (00:29)
[2021-04-26] MEDS: AMPICILLIN/NS 1 GM/50 ML 1 GM/50 ML BAG IV SCH (05:40)
[2021-04-26] MEDS: IBUPROFEN 800 MG TAB PO SCH (05:40)
[2021-04-26] MEDS: ASCORBIC ACID 500 MG TAB PO SCH (09:52)
[2021-04-26] MEDS: FERROUS SULFATE 325 MG TAB PO SCH (09:52)
[2021-04-26] MEDS: PRENATAL VIT27-FE FUMARATE-FOLIC ACID VIT TAB PO SCH (09:52)
[2021-04-26 09:57] LABS: Basophils # (Auto) 0.1 K/mm3 (0.0-0.1); Basophils % (Auto) 0.7 % (0.0-1.8); Eosinophils # (Auto) 0.2 K/mm3 (0.0-0.4); Eosinophils % (Auto) 2.4 % (0.0-4.3); Hematocrit 27.3 % (30.3-42.9); Hemoglobin 9.5 gm/dl (10.1-14.3); Lymphocytes # (Auto) 0.8 K/mm3 (1.2-5.4); Lymphocytes % (Auto) 7.7 % (13.4-35.0); Mean Corpuscular HGB Conc 35 % (30-34); Mean Corpuscular Volume 88 fl (79-97); Monocytes # (Auto) 0.7 K/mm3 (0.0-0.8); Monocytes % (Auto) 6.6 % (0.0-7.3); Red Cell Distribution Width 16.6 % (13.2-15.2)
[2021-04-26 09:58] LABS: Platelet Count 466 K/mm3 (140-440)
--- NOTE | 2021-04-26 11:26 | Progress Note ---
Assessment and Plan PPD#2 demise and pt with low depression screening score 1. routine care and discharge home after pt seen by psychiatry 2. Discussed contraception and pt declines same All questions encouraged and answered Subjective Date of service: 04/26/21 Principal diagnosis: demise Interval history: pt states that she is ready to go home, however nurse reports pt had abnormal depression screening test and consult placed to psychiatry. pt denies SI/HI/AVH; Vag bleed less than a period. pt denies pelvic pain and has been voiding well. Pt declines contraception at this time. Denies N/V/F/C Objective - Constitutional Vitals: Vital Signs - 12hr 04/25/21 04/26/21 04/26/21 23:26 00:06 05:40 Temperature 97.9 F Pulse Rate 83 Respiratory 20 18 20 Rate Blood Pressure 126/79 O2 Sat by Pulse 98 Oximetry O2 Sat by Pulse Oximetry [ Throughout] 04/26/21 04/26/21 04/26/21 06:50 07:43 08:03 Temperature 98.1 F 97.8 F Pulse Rate 80 73 Respiratory 18 16 Rate Blood Pressure 126/78 138/81 O2 Sat by Pulse 99 97 Oximetry O2 Sat by Pulse 98 Oximetry [ Throughout] General appearance: Present: no acute distress - Neck Neck: normal ROM - Respiratory Respiratory effort: normal - Breasts Breasts: deferred - Cardiovascular Rhythm: regular Extremities: no ischemia - Gastrointestinal General gastrointestinal: Present: soft, non-tender - Genitourinary Female genitourinary: other (Non-tender uterine fundus, lochia scant) - Neurologic Neurologic: moves all extremities - Psychiatric Psychiatric: cooperative - Labs CBC & Chem 7: 04/26/21 08:58 04/25/21 20:37 Labs: Abnormal lab results 04/23/21 04/25/21 04/26/21 Range/Units 03:40 20:37 08:58 RBC 3.10 L (3.65-5.03) M/mm3 Hgb 9.5 L (10.1-14.3) gm/dl Hct 27.3 L (30.3-42.9) % MCHC 35 H (30-34) % RDW 16.6 H (13.2-15.2) % Plt Count 466 H D (140-440) K/mm3 Lymph % (Auto) 7.7 L (13.4-35.0) % Lymph # (Auto) 0.8 L (1.2-5.4) K/mm3 Seg Neutrophils % 82.6 H (40.0-70.0) % Seg Neutrophils # 8.1 H (1.8-7.7) K/mm3 Carbon Dioxide 21 L (22-30) mmol/L Alkaline Phosphatase 139 H (35-129) units/L Albumin 3.5 L (3.9-5) g/dL Crossmatch See Detail Medications & Allergies - Medications Allergies/Adverse Reactions: Allergies No Known Allergies Allergy (Verified 04/22/21 22:23) Home Medications: Home Medications Medication Instructions Recorded Confirmed Last Taken Type labetaloL [Labetalol 100mg TAB] 100 mg PO BID 30 Days #60 04/26/21 Unknown Rx Active Medications: Generic Name Dose Route Start Last Admin Trade Name Freq PRN Reason Stop Dose Admin Acetaminophen 650 mg 04/24/21 11:00 04/24/21 19:21 Acetaminophen 325 Mg Tab PO 650 mg Q4H PRN Administration Pain MILD(1-3)/Fever >100.5/RIVAS Ascorbic Acid 500 mg 04/25/21 16:00 04/26/21 09:52 Ascorbic Acid 500 Mg Tab PO 500 mg BID KATELYN Administration Bisacodyl 10 mg 04/24/21 11:00 Bisacodyl 10 Mg Rect Supp W[place] BID PRN Constipation Carboprost Tromethamine 250 mcg 04/23/21 02:30 Carboprost Tromethamine 250 Mcg/1 Ml Inj IM ONCE PRN Uterine Bleeding Diphenhydramine HCl 25 mg 04/24/21 11:00 Diphenhydramine 25 Mg Cap PO Q6H PRN Itching Ephedrine Sulfate 10 mg 04/23/21 20:01 Ephedrine Sulfate 50 Mg/1 Ml Inj IV Q2M PRN Hypotension Fentanyl 100 mcg 04/23/21 02:30 Fentanyl 100 Mcg/2 Ml Inj IV Q2H PRN Pain,Severe (7-10) LABOR PAIN Ferrous Sulfate 325 mg 04/25/21 16:00 04/26/21 09:52 Ferrous Sulfate 325 Mg Tab PO 325 mg BID KATELYN Administration Lactated Ringer's 1,000 mls @ 125 mls/hr 04/23/21 02:30 04/26/21 00:29 Lactated Ringers IV 125 mls/hr DIRECT KATELYN Administration Oxytocin/Sodium Chloride 30 units in 500 mls @ 40 mls/hr 04/23/21 03:00 04/24/21 03:45 Pitocin/Ns 30 Unit/500ml IV 8 mls/hr TITR KATELYN 8 mls/hr Titration Protocol Magnesium Sulfate 40 gm in 1,000 mls @ 50 mls/hr 04/23/21 03:00 04/24/21 06:23 Magnesium Sulfate 40gm/1000ml IV 2 gm/hr DIRECT KATELYN 50 mls/hr Administration 2 GM/HR Tranexamic Acid 1,000 mg/ 110 mls @ 100 mls/30 min 04/23/21 09:00 Sodium Chloride IV ONCE PRN Bleeding Oxytocin/Sodium Chloride 30 units in 500 mls @ 0 mls/hr 04/23/21 20:00 Pitocin/Ns 30 Unit/500ml IV TITR KATELYN Protocol Per Protocol Fentanyl/Bupivacaine/Sodium Chlor 200 mcg in 100 mls @ 12 mls/hr 04/23/21 21:00 04/24/21 06:26 Fentanyl-Bupiv 2 Mcg/Ml-0.125% EPIDURAL 12 mls/hr TITR KATELYN Administration Protocol Ampicillin Sodium 1 gm in 50 mls @ 100 mls/hr 04/24/21 14:00 04/26/21 05:40 Ampicillin/Ns 1 Gm/50 Ml IV 100 mls/hr Q6H KATELYN Administration Protocol Clindamycin HCl 900 mg in 50 mls @ 100 mls/hr 04/24/21 11:00 04/26/21 00:29 Cleocin 900 Mg/50 Ml IV 100 mls/hr Q8H KATELYN Administration Protocol Ibuprofen 800 mg 04/24/21 11:00 04/26/21 05:40 Ibuprofen 800 Mg Tab PO 800 mg Q6H KATELYN Administration Labetalol HCl 100 mg 04/23/21 05:00 04/26/21 09:52 Labetalol 100 Mg Tab PO 100 mg BID KATELYN Administration Loperamide HCl 2 mg 04/23/21 02:30 Loperamide 2 Mg Cap PO ONCE PRN give with Hemabate Magnesium Hydroxide 30 ml 04/24/21 11:00 Magnesium Hydroxide (Mom) Oral Liqd Udc PO HS PRN Constipation Methylergonovine Maleate 0.2 mg 04/23/21 02:30 Methylergonovine Maleate 0.2 Mg/Ml Vial IM ONCE PRN Uterine Bleeding Mineral Oil 30 ml 04/23/21 02:30 Mineral Oil 30 Ml Oral Liqd PO QHS PRN Constipation Misoprostol 800 mcg 04/23/21 02:30 Misoprostol 200 Mcg Tab WV ONCE PRN Uterine Bleeding Multi-Ingredient Ointment 1 applic 04/24/21 11:00 Lanolin/Zinc/Dimethicone (Lansinoh) 7 Gm TP PRN PRN Sore Nipples Multivitamins/Iron/Calcium 1 each 04/24/21 11:00 04/26/21 09:52 [id number] Fumarate-Folic Acid Vit Tab PO 1 each QDAY KATELYN Administration Nalbuphine HCl 10 mg 04/23/21 02:30 Nalbuphine 10 Mg/1 Ml Inj IV Q2H PRN Pain, Moderate (4-6) Naloxone HCl 0.2 mg 04/23/21 20:01 Naloxone 2 Mg/2 Ml Inj IV Q5M PRN Respiratory sedation Ondansetron HCl 4 mg 04/24/21 11:00 Ondansetron 4 Mg/2 Ml Inj IV Q8H PRN Nausea And Vomiting Oxycodone/Acetaminophen 1 tab 04/24/21 11:00 Oxycodone /Acetaminophen 5-325mg Tab PO Q6H PRN Pain, Moderate (4-6) Oxytocin 10 unit 04/23/21 02:30 Oxytocin 10 Unit/1 Ml Inj IM ONCE PRN Uterine Bleeding Promethazine HCl 25 mg 04/24/21 11:00 Promethazine 25 Mg Rect Supp WV Q6H PRN Nausea And Vomiting Promethazine HCl 25 mg 04/24/21 11:00 Promethazine 25 Mg Tab PO Q6H PRN Nausea And Vomiting Sodium Chloride 10 ml 04/24/21 11:00 Sodium Chloride 0.9% 10 Ml Flush Syringe IV 05/06/21 10:59 PRN NR Witch Jazz/Glycerin 1 each 04/24/21 11:00 Witch Jazz/ Glycerin Pad TP PRN PRN Hemorrhoid/cleansing/soothing
--- NOTE | 2021-04-26 11:28 | Discharge Summary ---
Providers - Providers Date of Admission: 04/23/21 12:34 Attending physician: CORAZON JOHNSON 04/26/21 11:20 psychiatry consult [Consult to Mental Health] [CONS] Stat Reason For Exam: on [place] Depression Scale Primary care physician: CORAZON JOHNSON Hospitalization Reason for admission: IUFD (at 31.2wks confirmed by u/sound at [facility]) Episiotomy: none Laceration: none Other procedures: none complications: none Discharge diagnosis: intrapartum demise, delivery [place] baby: male Hospital course: preg at 31.2wks with limited care at [facility] (2 visits) and pt came to triage with no movement and U/S confirmed demise, suspect placental abruption. Pt was induced and delivered vaginally a fetus with 2vessel cord, acessory placental lobe and foul smelling fluid and temp 100.3 when delivered on 04/24/21. Routine care done and pt had high depression screening score and consult to psychiatry done. Pt remained with asymptomatic anemia and was treated with IV antibiotics for chorio/endomyometritis. Pt declines contraception post delivery. Pt was treated with labetalol 100mg bid for preeclampsia and BP normal on discharge 120-140/60-80's Condition at discharge: Good Disposition: 01 HOME / SELF CARE / HOMELESS Plan - Discharge Medications Prescriptions: labetaloL [Labetalol 100mg TAB] 100 mg PO BID 30 Days #60 - Provider Discharge Summary Activity: no sex for 6 weeks Diet: routine Instructions: routine Additional instructions: [] Smoking cessation referral if applicable(refer to patient education folder for contact #) [] Refer to [facility] Booklet Call your doctor immediately for: * Fever > 100.5 * Heavy vaginal bleeding ( >1 pad per hour) * Severe persistent headache * Shortness of breath * Reddened, hot, painful area to leg or breast * Drainage or odor from incision. * Keep incision clean and dry at all times and follow doctor's instructions regarding bathing/showering - Follow up plan Follow up: CORAZON JOHNSON MD [Primary Care Provider] - 7 Days Forms: [facility] Discharge Summary, Work/School Excuse Out Patient
[2021-04-26 13:21] VITALS: BP 116/74
--- NOTE | 2021-04-26 14:24 | Consultation ---
History of Present Illness - Reason for Consult Consult date: 04/26/21 Reason for consult: demise - History of Present Psychiatric Illness The patient was seen today. She had a demise. During mu evaluation the patient is calm, cooperative and pleasant. She says she was almost 7 weeks . The patient says she was sad but feels a lot better now. She says "I couldn't stop crying at first." She denies SI/HI. She says "no, I'm scared to do any of that." She then says "I don't do any cutting or anything like that." The patient also denies any fear or feeling of endangerment. She says she's felt depression since she was little but never saw a psychiatrist. She says her parents didn't believe in that. "They believe in just praying," she says. She says she lives with her boyfriend and things are not the best. She says "he is a good person, but it's me. I've been through a lot." She says "but this is the most stable I've ever been. I usually lived here and there." The patient denies any illicit drug use outside of THC. She says she used to drink but she no longer does. She denies hallucinations, but states she has heard stuff in the past. Psych Histor Diagnoses: Denies Suicide attempts or Self-harm behavior: Denies Prior psychiatric hospitalizations: Denies Substance Abuse history: Denies Previous psychiatric medications tried: Denies Outpatient treatment: Denies PAST MEDICAL HISTORY: None reported Family Psychiatric History: None reported or documented SOCIAL HISTORY Marital Status: Single Living Arrangements: with boyfriend Employment Status: unemployed Access to guns/weapons: Denies Education: High school grad History of Abuse: none reported Legal History: none reported REVIEW OF SYSTEMS Constitutional: Negative for weight loss ENT: Negative for stridor Respiratory: Negative for cough or hemoptysis All other systems reviewed and are negative MENTAL STATUS EXAMINATION General Appearance and Behavior: Age appropriate, good hygiene, wearing appropriate clothes, calm, pleasant, cooperative Cooperation: Participating/engaged Psychomotor Behavior: Normal Mood: much better Affect and affective range: congruent with mood Thought Process: goal directed Thought Content: None Speech: Normal volume, Regular rate and rhythm, Suicidal Ideation: Denies Homicidal Ideation: Denies Hallucinations: Denies Delusions: None elicited Impulse Control: Limited Insight and Judgment: Limited insight and judgment, Memory: Normal Attention: Normal Orientation: Alert, oriented Assessment and Plan (1) Major Depressive Disorder Treatment Plan Establish outpatient psych Medical: per primary Sitter: defer to primary Disposition: Do not recommend acute psychiatric inpatient treatment The instructional support technician to give all necessary resources. Will sign off. Thanks Case staffed with Dr. Rojas Medications and Allergies Allergies Allergy/AdvReac Type Severity Reaction Status Date / Time No Known Allergies Allergy Verified 04/22/21 22:23 Home Medications Medication Instructions Recorded Confirmed Last Taken Type labetaloL [Labetalol 100mg TAB] 100 mg PO BID 30 Days #60 04/26/21 Unknown Rx Active Meds: Active Medications Acetaminophen (Acetaminophen 325 Mg Tab) 650 mg PO Q4H PRN PRN Reason: Pain MILD(1-3)/Fever >100.5/RIVAS Last Admin: 04/24/21 19:21 Dose: 650 mg Ascorbic Acid (Ascorbic Acid 500 Mg Tab) 500 mg PO BID [facility] Last Admin: 04/26/21 09:52 Dose: 500 mg Bisacodyl (Bisacodyl 10 Mg Rect Supp) 10 mg VT BID PRN PRN Reason: Constipation Carboprost Tromethamine (Carboprost Tromethamine 250 Mcg/1 Ml Inj) 250 mcg IM ONCE PRN PRN Reason: Uterine Bleeding Diphenhydramine HCl (Diphenhydramine 25 Mg Cap) 25 mg PO Q6H PRN PRN Reason: Itching Ephedrine Sulfate (Ephedrine Sulfate 50 Mg/1 Ml Inj) 10 mg IV Q2M PRN PRN Reason: Hypotension Fentanyl (Fentanyl 100 Mcg/2 Ml Inj) 100 mcg IV Q2H PRN PRN Reason: Pain,Severe (7-10) LABOR PAIN Ferrous Sulfate (Ferrous Sulfate 325 Mg Tab) 325 mg PO BID [facility] Last Admin: 04/26/21 09:52 Dose: 325 mg Lactated Ringer's (Lactated Ringers) 1,000 mls @ 125 mls/hr IV DIRECT KATELYN Last Admin: 04/26/21 00:29 Dose: 125 mls/hr Oxytocin/Sodium Chloride (Pitocin/Ns 30 Unit/500ml) 30 units in 500 mls @ 40 mls/hr IV TITR KATELYN; Protocol Last Titration: 04/24/21 03:45 Dose: 8 mls/hr, 8 mls/hr Magnesium Sulfate (Magnesium Sulfate 40gm/1000ml) 40 gm in 1,000 mls @ 50 mls/hr IV DIRECT KATELYN Last Admin: 04/24/21 06:23 Dose: 2 gm/hr, 50 mls/hr Tranexamic Acid 1,000 mg/ (Sodium Chloride) 110 mls @ 100 mls/30 min IV ONCE PRN PRN Reason: Bleeding Oxytocin/Sodium Chloride (Pitocin/Ns 30 Unit/500ml) 30 units in 500 mls @ 0 mls/hr IV TITR KATELYN; Protocol Fentanyl/Bupivacaine/Sodium Chlor (Fentanyl-Bupiv 2 Mcg/Ml-0.125%) 200 mcg in 100 mls @ 12 mls/hr EPIDURAL TITR KATELYN; Protocol Last Admin: 04/24/21 06:26 Dose: 12 mls/hr Ampicillin Sodium (Ampicillin/Ns 1 Gm/50 Ml) 1 gm in 50 mls @ 100 mls/hr IV Q6H KATELYN; Protocol Last Admin: 04/26/21 05:40 Dose: 100 mls/hr Clindamycin HCl (Cleocin 900 Mg/50 Ml) 900 mg in 50 mls @ 100 mls/hr IV Q8H KATELYN; Protocol Last Admin: 04/26/21 00:29 Dose: 100 mls/hr Ibuprofen (Ibuprofen 800 Mg Tab) 800 mg PO Q6H KATELYN Last Admin: 04/26/21 05:40 Dose: 800 mg Labetalol HCl (Labetalol 100 Mg Tab) 100 mg PO BID [facility] Last Admin: 04/26/21 09:52 Dose: 100 mg Loperamide HCl (Loperamide 2 Mg Cap) 2 mg PO ONCE PRN PRN Reason: give with Hemabate Magnesium Hydroxide (Magnesium Hydroxide (Mom) Oral Liqd Udc) 30 ml PO HS PRN PRN Reason: Constipation Methylergonovine Maleate (Methylergonovine Maleate 0.2 Mg/Ml Vial) 0.2 mg IM ONCE PRN PRN Reason: Uterine Bleeding Mineral Oil (Mineral Oil 30 Ml Oral Liqd) 30 ml PO QHS PRN PRN Reason: Constipation Misoprostol (Misoprostol 200 Mcg Tab) 800 mcg VT ONCE PRN PRN Reason: Uterine Bleeding Multi-Ingredient Ointment (Lanolin/Zinc/Dimethicone (Lansinoh) 7 Gm) 1 applic TP PRN PRN PRN Reason: Sore Nipples Multivitamins/Iron/Calcium ( [id number] Fumarate-Folic Acid Vit Tab) 1 each PO QDAY KATELYN Last Admin: 04/26/21 09:52 Dose: 1 each Nalbuphine HCl (Nalbuphine 10 Mg/1 Ml Inj) 10 mg IV Q2H PRN PRN Reason: Pain, Moderate (4-6) Naloxone HCl (Naloxone 2 Mg/2 Ml Inj) 0.2 mg IV Q5M PRN PRN Reason: Respiratory sedation Ondansetron HCl (Ondansetron 4 Mg/2 Ml Inj) 4 mg IV Q8H PRN PRN Reason: Nausea And Vomiting Oxycodone/Acetaminophen (Oxycodone /Acetaminophen 5-325mg Tab) 1 tab PO Q6H PRN PRN Reason: Pain, Moderate (4-6) Oxytocin (Oxytocin 10 Unit/1 Ml Inj) 10 unit IM ONCE PRN PRN Reason: Uterine Bleeding Promethazine HCl (Promethazine 25 Mg Rect Supp) 25 mg VT Q6H PRN PRN Reason: Nausea And Vomiting Promethazine HCl (Promethazine 25 Mg Tab) 25 mg PO Q6H PRN PRN Reason: Nausea And Vomiting Sodium Chloride (Sodium Chloride 0.9% 10 Ml Flush Syringe) 10 ml IV PRN NR Stop: 05/06/21 10:59 Witch Jazz/Glycerin (Witch Jazz/ Glycerin Pad) 1 each TP PRN PRN PRN Reason: Hemorrhoid/cleansing/soothing Mental Status Exam - Vital signs Last Vital Signs Temp 98.1 F 04/26/21 12:13 Pulse 82 04/26/21 12:13 Resp 17 04/26/21 12:13 BP 116/74 04/26/21 12:13 Pulse Ox 99 04/26/21 12:13 Results Result Diagrams: 04/26/21 08:58 04/25/21 20:37 Abnormal lab results 04/23/21 04/25/21 04/26/21 Range/Units 03:40 20:37 08:58 RBC 3.10 L (3.65-5.03) M/mm3 Hgb 9.5 L (10.1-14.3) gm/dl Hct 27.3 L (30.3-42.9) % MCHC 35 H (30-34) % RDW 16.6 H (13.2-15.2) % Plt Count 466 H D (140-440) K/mm3 Lymph % (Auto) 7.7 L (13.4-35.0) % Lymph # (Auto) 0.8 L (1.2-5.4) K/mm3 Seg Neutrophils % 82.6 H (40.0-70.0) % Seg Neutrophils # 8.1 H (1.8-7.7) K/mm3 Carbon Dioxide 21 L (22-30) mmol/L Alkaline Phosphatase 139 H (35-129) units/L Albumin 3.5 L (3.9-5) g/dL Crossmatch See Detail All other labs normal.
== END 2021-04-26 17:20 | disposition home or self-care (01) | DRG 774 ==
LOC: TRG 21:11 → APU 21:13 → TRG 04-23 02:32 → LD 04-23 04:43 → OB 04-24 19:58
PROVIDERS: ADMIT Obstetrics & Gynecology; ATTEND Obstetrics & Gynecology
PROC: 10E0XZZ Delivery of Products of Conception, External Approach (ICD-10-PCS; principal; 2021-04-24)
PROC: 10907ZC Drainage of Amniotic Fluid, Therapeutic from Products of Conception, Via Natural or Artificial Opening (ICD-10-PCS; 2021-04-24)
PROC: 3E0R3BZ Introduction of Anesthetic Agent into Spinal Canal, Percutaneous Approach (ICD-10-PCS; 2021-04-24)
PROC: 00HU33Z Insertion of Infusion Device into Spinal Canal, Percutaneous Approach (ICD-10-PCS; 2021-04-24)
PROC: 3E0P7VZ Introduction of Hormone into Female Reproductive, Via Natural or Artificial Opening (ICD-10-PCS; 2021-04-24)
DX: O36.4XX0 Maternal care for intrauterine death, not applicable or unspecified (principal); O45.93 Premature separation of placenta, unspecified, third trimester; Z37.1 Single stillbirth; Z3A.31 31 weeks gestation of pregnancy; Z20.822 Contact with and (suspected) exposure to COVID-19; O99.52 Diseases of the respiratory system complicating childbirth; J45.909 Unspecified asthma, uncomplicated; O11.4 Pre-existing hypertension with pre-eclampsia, complicating childbirth; O77.0 Labor and delivery complicated by meconium in amniotic fluid; O90.81 Anemia of the puerperium; O75.2 Pyrexia during labor, not elsewhere classified; O60.14X0 Preterm labor third trimester with preterm delivery third trimester, not applicable or unspecified; O99.345 Other mental disorders complicating the puerperium; F53.0 Postpartum depression
CPT/HCPCS: 36415; 59200; 76815; 80053; 80307; 81001; 83615; 83735; 84550; 85014; 85018; 85025; 85027; 85379; 85384; 85610; 85730; 86592; 86706; 86803; 86850; 86900; 86901; 86920; 87086; 87806; 88307; G0378; J3490; J7502; J0290; J2590; J3475; J7120; U0003

== ENCOUNTER 2021-06-24 11:20 | Emergency (ER) | payer MEDICAID ==
[2021-06-24] MEDS ORDERED: TETANUS,DIPH,PERTUSS(ACELL) VACCINE 0.5 ML SYRINGE IM ONE (12:00)
[2021-06-24 12:02] VITALS: BP 124/95
--- NOTE | 2021-06-24 12:42 | Emergency Department Report ---
- General Chief complaint: Head Injury Stated complaint: RT FOREHEAD LACERATION Time Seen by Provider: 06/24/21 11:58 Source: patient Mode of arrival: Ambulatory Limitations: No Limitations - History of Present Illness Initial comments: This is a 20-year-old female nontoxic, well nourished in appearance, no acute signs of distress presents to the ED with c/o of right frontal scalp laceration that occurred today prior to arrival. Patient stated that while she was walking she tripped and fell against the garage door. Denies any LOC. Patient denies any neck or back pains. Denies any other complaints or symptoms. Patient denies decreased sensation or range of motion. Patient stated bleeding is under control. Denies any numbness, tingling, fever, chills, nausea, vomiting, chest pain, shortness of breath, headache or stiff neck. Patient denies any allergies to significant past medical history. Patient is that he is not up-to-date with tetanus. MD complaint: laceration -: This morning Tetanus Up to Date: no Location: head Severity: mild Severity scale (0 -10): 8 Quality: aching Consistency: constant Improves with: none Worsens with: none Associated symptoms: denies other symptoms Treatments Prior to Arrival: none - Related Data Previous Rx's Medication Instructions Recorded Last Taken Type labetaloL [Labetalol 100mg TAB] 100 mg PO BID 30 Days #60 04/26/21 Unknown Rx Naproxen 500 mg PO BID PRN #12 tab 06/24/21 Unknown Rx Sulfamethoxazole/Trimethoprim 1 each PO BID #14 tab 06/24/21 Unknown Rx [Bactrim DS TAB] Allergies Allergy/AdvReac Type Severity Reaction Status Date / Time No Known Allergies Allergy Verified 04/22/21 22:23 Abscess Boil HPI - HPI Chief Complaint: Head Injury Stated Complaint: RT FOREHEAD LACERATION Time Seen by Provider: 06/24/21 11:58 Home Medications: Previous Rx's Medication Instructions Recorded Last Taken Type labetaloL [Labetalol 100mg TAB] 100 mg PO BID 30 Days #60 04/26/21 Unknown Rx Naproxen 500 mg PO BID PRN #12 tab 06/24/21 Unknown Rx Sulfamethoxazole/Trimethoprim 1 each PO BID #14 tab 06/24/21 Unknown Rx [Bactrim DS TAB] Allergies/Adverse Reactions: Allergies Allergy/AdvReac Type Severity Reaction Status Date / Time No Known Allergies Allergy Verified 04/22/21 22:23 ED Review of Systems ROS: Stated complaint: RT FOREHEAD LACERATION Other details as noted in HPI Comment: All other systems reviewed and negative Constitutional: denies: chills, fever Eyes: denies: eye pain, eye discharge, vision change ENT: denies: ear pain, throat pain Respiratory: denies: cough, shortness of breath, wheezing Cardiovascular: denies: chest pain, palpitations Endocrine: no symptoms reported Gastrointestinal: denies: abdominal pain, nausea, diarrhea Genitourinary: denies: urgency, dysuria, discharge Musculoskeletal: denies: back pain, joint swelling, arthralgia Skin: denies: rash, lesions Neurological: denies: headache, weakness, paresthesias Psychiatric: denies: anxiety, depression Hematological/Lymphatic: denies: easy bleeding, easy bruising ED Past Medical Hx - Past Medical History Hx Hypertension: Yes (on Mg gtt) Hx Diabetes: No Hx Deep Vein Thrombosis: No Hx Renal Disease: No Hx Sickle Cell Disease: No Hx Seizures: No Hx Asthma: Yes Hx HIV: No - Social History Smoking Status: Former Smoker - Medications Home Medications: Home Medications Medication Instructions Recorded Confirmed Last Taken Type labetaloL [Labetalol 100mg TAB] 100 mg PO BID 30 Days #60 04/26/21 Unknown Rx Naproxen 500 mg PO BID PRN #12 tab 06/24/21 Unknown Rx Sulfamethoxazole/Trimethoprim 1 each PO BID #14 tab 06/24/21 Unknown Rx [Bactrim DS TAB] ED Physical Exam - General Limitations: No Limitations General appearance: alert, in no apparent distress - Head Head exam: Present: normocephalic - Expanded Head Exam Expanded Head exam: Present: laceration 1 - 3 cm lac - Eye Eye exam: Present: normal appearance, PERRL, EOMI - ENT ENT exam: Present: normal exam, normal orophraynx - Neck Neck exam: Present: normal inspection, full ROM. Absent: lymphadenopathy - Respiratory Respiratory exam: Absent: respiratory distress - Cardiovascular Cardiovascular Exam: Present: regular rate - Extremities Exam Extremities exam: Present: full ROM - Back Exam Back exam: Present: normal inspection, full ROM. Absent: tenderness, CVA t enderness (R), CVA tenderness (L), muscle spasm, paraspinal tenderness, vertebral tenderness, rash noted - Neurological Exam Neurological exam: Present: alert, oriented X3, normal gait - Expanded Neurological Exam Expanded Patient oriented to: Present: person, place, time Cranial nerves: EOM's Intact: Normal, Facial Sensation: Normal Cerebellar function: Finger to Nose: Normal Upper motor neuron: Pronator Drift: Normal, Sensory Extinction: Normal Motor strength exam: RUE: 5, LUE: 5, RLE: 5, LLE: 5 Best Eye Response (Vinnie): (4) open spontaneously Best Motor Response (Vinnie): (6) obeys commands Best Verbal Response (Vinnie): (5) oriented Vinnie Total: 15 - Psychiatric Psychiatric exam: Present: normal affect, normal mood - Skin Skin exam: Present: warm, dry, intact, normal color. Absent: rash ED Course Vital Signs 06/24/21 12:01 Temperature 98.4 F Pulse Rate 95 H Respiratory 16 Rate Blood Pressure 124/95 [Right] O2 Sat by Pulse 100 Oximetry - Reevaluation(s) Reevaluation #1: 06/24/21 12:44 Patient is speaking in full sentences with no signs of distress noted. - Laceration /Wound Repair Head Wound Location: face (Right scalp) Wound Length (cm): 3 Wound's Depth, Shape: superficial Wound Explored: clean Irrigated w/ Saline (ccs): 40 Betadine Prep?: Yes Volume Anesthetic (ccs): 3 (2% lidocaine plain) Wound Repaired With: sutures Suture Size/Type: 6:0, nylon Number of Sutures: 4 Layer Closure?: No Sterile Dressing Applied?: Yes Progress: Under sterile field, I used Betadine to clean the area. I then used 40 mL of normal saline to flush the area. I then used 2% lidocaine plain and injected 3 mL to the wound. I then used a 6-0 nylon to suture the laceration. Number of stitches 4. I then applied a sterile 4 x 4 with tape. Minimal bleeding noted but is under control. Patient tolerated procedure well with no signs of distress. ED Medical Decision Making - Radiology Data [facility] [address] [place] [address] Cat Scan Report Signed Patient: LEO WEAVER MR #: [id number] : 2000 Acct:[id number] Age/Sex: 20 / F ADM Date: 06/24/21 Loc: ED Attending Dr: Ordering Physician: CHRISTOPHER LAST NP Date of Service: 06/24/21 Procedure(s): CT head/brain wo con Accession Number(s): [id number] cc: CHRISTOPHER LAST NP CT HEAD WITHOUT CONTRAST INDICATION / CLINICAL INFORMATION: lac s/p scalp injury. TECHNIQUE: All CT scans at this location are performed using CT dose reduction for ALARA by means of automated exposure control. COMPARISON: None available. FINDINGS: HEMORRHAGE: None. EXTRA-AXIAL SPACES: Normal in size and morphology for the patient's age. VENTRICULAR SYSTEM: Normal in size and morphology for the patient's age. CEREBRAL PARENCHYMA: No significant abnormality. No acute territorial infarct. MIDLINE SHIFT / HERNIATION: None. CEREBELLUM / BRAINSTEM: No significant abnormality. ORBITS: Normal as visualized. SOFT TISSUES: There is a laceration at the right frontal scalp. SKULL: No significant abnormality. PARANASAL SINUSES / MASTOID AIR CELLS: Normal as visualized. ADDITIONAL FINDINGS: None. IMPRESSION: 1. No acute intracranial abnormality. 2. Right frontal scalp laceration. Signer Name: Robles Ignacio MD Signed: 06/24/2021 2:23 PM Workstation Name: [id number] Transcribed By: DB Dictated By: ROBLES IGNACIO MD Electronically Authenticated By: ROBLES IGNACIO MD Signed Date/Time: 06/24/211422 DD/ 20 TD/TT: - Medical Decision Making This is a 20-year-old female that presents with laceration. Patient is stable and was examined by me. Patient is notified of the imaging results with no questions noted by the patient. The laceration suturing has been performed and has been performed and patient tolerated well. A sterile dressing has been applied. Patient was educated on proper wound care. Patient is discharged with Bactrim. Patient was instructed to return in 10 days for suture removal. Patient was instructed to refer to Follow-up with a primary care doctor in 3-5 days or if symptoms worsen and continue return to emergency room as soon as possible. At time of discharge, the patient does not seem toxic or ill in appearance. No acute signs of distress noted. Patient agrees to discharge treatment plan of care. No further questions noted by the patient. Critical care attestation.: If time is entered above; I have spent that time in minutes in the direct care of this critically ill patient, excluding procedure time. ED Disposition Clinical Impression: Laceration Head injury Qualifiers: Encounter type: initial encounter Qualified Code(s): S09.90XA - Unspecified injury of head, initial encounter Disposition: HOME / SELF CARE / HOMELESS Is pt being admited?: No Does the pt Need Aspirin: No Condition: Stable Additional Instructions: Follow-up with a primary care doctor in 3-5 days or if symptoms worsen and continue return to emergency room as soon as possible. Return in 10 days for suture removal. Prescriptions: Sulfamethoxazole/Trimethoprim [Bactrim DS TAB] 1 each PO BID #14 tab Naproxen 500 mg PO BID PRN #12 tab PRN Reason: Pain , Severe (7-10) Referrals: ELEANOR SILVA MD [Primary Care Provider] - 3-5 Days DANA SALINAS MD [Staff Physician] - 3-5 Days Time of Disposition: 15:29
[2021-06-24 13:39] LABS: HCG Qualitative,Urine Negative (Negative)
--- NOTE | 2021-06-24 14:27 | Cat Scan Report ---
CT HEAD WITHOUT CONTRAST INDICATION / CLINICAL INFORMATION: lac s/p scalp injury. TECHNIQUE: All CT scans at this location are performed using CT dose reduction for ALARA by means of automated exposure control. COMPARISON: None available. FINDINGS: HEMORRHAGE: None. EXTRA-AXIAL SPACES: Normal in size and morphology for the patient's age. VENTRICULAR SYSTEM: Normal in size and morphology for the patient's age. CEREBRAL PARENCHYMA: No significant abnormality. No acute territorial infarct. MIDLINE SHIFT / HERNIATION: None. CEREBELLUM / BRAINSTEM: No significant abnormality. ORBITS: Normal as visualized. SOFT TISSUES: There is a laceration at the right frontal scalp. SKULL: No significant abnormality. PARANASAL SINUSES / MASTOID AIR CELLS: Normal as visualized. ADDITIONAL FINDINGS: None. IMPRESSION: 1. No acute intracranial abnormality. 2. Right frontal scalp laceration. Signer Name: Robles Ignacio MD Signed: 06/24/2021 2:23 PM Workstation Name: [id number]
== END 2021-06-24 16:25 | disposition home or self-care (01) ==
LOC: ED 11:20
DX: S01.81XA Laceration without foreign body of other part of head, initial encounter (principal); I10 Essential (primary) hypertension; J45.909 Unspecified asthma, uncomplicated; Z87.891 Personal history of nicotine dependence; Z79.899 Other long term (current) drug therapy; W18.39XA Other fall on same level, initial encounter; Y93.89 Activity, other specified; Y92.89 Other specified places as the place of occurrence of the external cause; Y99.8 Other external cause status
CPT/HCPCS: 70450; 81025; 90471; 90715; 99284